=== PATIENT | male | born 1935 | race Caucasian/White ===

== ENCOUNTER → 2018-04-26 | Outpatient (CLI) | payer MEDICARE, OTHER ==
[~2018-04-26] MED LIST: AGGR20025 PO; DIATRIZOATE MEGLU/SOD 660/100 MG/ML 120 ML BOTTLE ONE; GABA-531 PO; LIDOCAINE 1%/EPI 1:200,000/PF 10 ML VIAL ONE; MECL12.585 PO; METF-960 PO; OMEP20 PO; SERT50TA12 PO; SIMV-261 PO; TAMS0.4C32 PO
== END | disposition home or self-care (01) ==
LOC: RADMN 04-21 12:33
PROVIDERS: ATTEND Internal Medicine
DX: R13.12 Dysphagia, oropharyngeal phase (principal); I12.0 Hypertensive chronic kidney disease with stage 5 chronic kidney disease or end stage renal disease; N18.9 Chronic kidney disease, unspecified
CPT/HCPCS: J3490; Q9963